=== PATIENT | female | born 1970 | race Caucasian/White ===

== ENCOUNTER 2021-03-02 06:32 | Emergency (ER) | payer OTHER, SELFPAY ==
--- NOTE | ~2021-03-02 | US_ITS ---
EXAMINATION: US VENOUS ULTRASOUND WITH DOPPLER LOWER EXTREMITY, RIGHT CLINICAL INFORMATION: Pain and swelling. COMPARISON: None TECHNIQUE: Ultrasound of the deep veins is performed from the hip to the calf with compression sonography and color and pulse Doppler assessment. Spectral analysis with color-flow imaging is performed. FINDINGS: There is normal venous compression and respiratory variation and augmented flow. The visualized common femoral vein, superficial femoral vein, profunda femoral vein, popliteal vein, and the trifurcation region shows no evidence of deep venous thrombosis. There is no significant popliteal fossa cyst. If the patient's symptoms persist, followup ultrasound in 5 days 7 days might be of value to exclude proximal propagation from a non-visualized calf vein. US/US venous duplex LE RT IMPRESSION: No DVT demonstrated in the right lower extremity.
[2021-03-02 06:46] VITALS: BP 181/131; PULSE 85; RESP 16; TEMP 36.6; O2SAT 97; BMI 23.0
--- NOTE | 2021-03-02 06:49 | ED.BACK ---
HPI - Back Pain/Injury General Chief Complaint: Back Pain/Injury Stated Complaint: back pain Time Seen by Provider: 03/02/21 06:49 Source: patient Mode of arrival: ambulatory Limitations: no limitations History of Present Illness MD elicited complaint: back pain and back injury Pertinent past history: prior back pain Onset (ago): day(s) (2) Timing: constant Severity: moderate Similar Symptoms Previously: Yes Quality: aching and throbbing Location: lumbar spine Radiation: right leg below the knee Exacerbating factors: movement Relieving factors: none Context: other (started after mowing the lawn) Associated symptoms: other (R leg cramp) Treatments prior to arrival: NSAIDS Work related injury: No Related Data Previous Rx's Medication Instructions Recorded diazepam 5 mg tablet (Valium) 5 mg PO TID PRN #10 tab 03/02/21 ibuprofen 600 mg tablet 600 mg PO Q6H PRN #30 tab 03/02/21 lidocaine 4 % topical patch 1 patch TOPICAL DAILY PRN #10 ea 03/02/21 prednisone 20 mg tablet 40 mg PO DAILY 4 Days #8 tab 03/02/21 Allergies Allergy/AdvReac Type Severity Reaction Status Date / Time No Known Allergies Allergy Unverified 04/16/20 15:27 [No Known Allergies*] Review of Systems Review of Systems: Constitutional : No Weight loss, No Fever, No Chills, ENT/Mouth : No Hearing loss, No Ear Pain, No Nasal Congestion, No Sinus Pain, No Hoarseness, No sore throat, No Rhinorrhea, No Swallowing Difficulty Cardiovascular : No Chest Pain, No SOB, pos calf pain Respiratory : No Cough, No Dyspnea Gastrointestinal : No Nausea, No Vomiting, No Diarrhea, No abdominal Pain, No Hematochezia, No Melena Genitourinary : No Dysuria, No Urinary Frequency, No Hematuria, No Urinary Incontinence, Musculoskeletal : positive back pain Skin : No Skin Lesions, No rash Neuro : No Weakness, No Numbness, No Paresthesias, no loss of bowel or bladder incontinence, no saddle anesthesia All other systems are negative PMF Past Medical History Attestation statement: The following information was validated with the patient. Medical History Hypertension Surgical History H/O: hysterectomy Social History Social History (Updated 03/02/21 @ 07:07 by Tenisha Kitchen DO) Patient Tobacco Use Status: Current everyday Tobacco user Advance Directives: No Patient : No Physical Exam Vital Signs: Vital Signs: Last Vital Signs Temp 97.8 F 03/02/21 07:15 Pulse 73 03/02/21 07:15 Resp 16 03/02/21 07:15 BP 133/99 H 03/02/21 07:15 Pulse Ox 95 03/02/21 07:15 Body Mass Index 23.0 Appearance: Alert. Oriented X3. No acute distress. Eyes: Pupils equal, round and reactive to light. ENT: Pharynx normal. Neck: Normal inspection. Neck supple. CVS: Normal heart rate and rhythm. Pulses normal. Respiratory: No respiratory distress. Breath sounds normal. Abdomen: Soft and nontender. Back: ttp along lateral lumbar paraspinals Skin: Skin warm and dry. Normal skin color. Normal skin turgor. Extremities: No lower extremity edema. R mild calf ttp Neuro: Oriented X 3. No motor deficit. No sensory deficit. L5/5 bilaterally SILT inner thighs 2+ patella reflexes Course Course Course Narrative: negative workup can ambulate stable for DC MDM - Back Pain/Injury MDM Narrative Medical decision making narrative: 51 yo female with low back pain no b/b incontinence, no saddle anesthesia, no IVDA, no AC therapy, no red flags at this time will need labs, R DVT study, PO pain control for back - no signs of CE Lab Data Result diagrams: 03/02/21 07:13 Labs: Lab Results 03/02/21 Range/Units 07:13 Potassium 3.7 (3.3-5.1) mmol/L Magnesium 1.8 (1.6-2.6) mg/dL Discharge Plan Discharge Clinical Impression: Lumbar radiculopathy, Myalgia Patient Disposition: Home, Self-Care Instructions: Acute Low Back Pain (ED), Musculoskeletal Pain (ED) Additional Instructions: return to ED for any worsening symptoms or concerns Prescriptions: New lidocaine 4 % adhesive patch,medicated 1 patch topical DAILY PRN (Reason: pain) Qty: 10 RF: 0 ibuprofen 600 mg tablet 600 mg PO Q6H PRN (Reason: pain) Qty: 30 RF: 0 diazepam [Valium] 5 mg tablet 5 mg PO TID PRN (Reason: muscle spasm) Qty: 10 RF: 0 prednisone 20 mg tablet 40 mg PO DAILY 4 Days Qty: 8 RF: 0 Referrals: Maggy Saez NP [Primary Care Provider] - 2 days (if not better) Stand Alone Forms: Work/School Release
[2021-03-02] MEDS: diazePAM 5 MG TABLET PO (07:10)
[2021-03-02] MEDS: predniSONE 20 MG TABLET 40 MG PO (07:10)
[2021-03-02 07:15] VITALS: BP 133/99; PULSE 73; RESP 16; TEMP 36.6; O2SAT 95
[2021-03-02 07:51] LABS: Magnesium 1.8 mg/dL (1.6-2.6); Potassium 3.7 mmol/L (3.3-5.1)
== END 2021-03-02 09:19 | disposition home or self-care (01) ==
PROVIDERS: Emergency Provider Emergency Medicine; PCP Nurse Practitioner Family
DX: M54.16 Radiculopathy, lumbar region (principal); M79.10 Myalgia, unspecified site; R60.0 Localized edema; F17.200 Nicotine dependence, unspecified, uncomplicated; Z71.6 Tobacco abuse counseling; Z79.899 Other long term (current) drug therapy
CPT/HCPCS: 36415; 83735; 84132; 93971; 99283

== ENCOUNTER 2023-08-08 09:49 | Emergency (ER) | payer OTHER, SELFPAY ==
[2023-08-08 09:59] VITALS: BP 211/112; PULSE 64; RESP 18; TEMP 36.6; O2SAT 98; BMI 23.5
[2023-08-08 14:12] VITALS: BP 197/106; PULSE 62; RESP 16; O2SAT 96
--- NOTE | 2023-08-08 14:15 | ED_ITS ---
HPI - General Adult General Chief complaint: General Medical Stated complaint: Issues w/Intestines Time Seen by Provider: 08/08/23 21:49 Source: patient Mode of arrival: ambulatory Limitations: no limitations History of Present Illness HPI narrative: Patient history of hypertension on atenolol and amlodipine noncompliant has not filled up her amlodipine for last 6 months comes here for rectal prolapse which has happened for last 3 days. Patient does have history of hysterectomy and bladder surgery been having loose bowels for last 3 days 3 to 4 times a day without any significant abdominal discomfort no nausea /vomiting noticed small rectal prolapse which she pushed inside at this time there is no prolapse patient's Xarelto for peripheral arterial disease noticed slight amount of blood in the stool earlier today Related Data Previous Rx's Medication Instructions Recorded diazepam 5 mg tablet (Valium) 5 mg PO TID PRN muscle spasm #10 03/02/21 tabs ibuprofen 600 mg tablet 600 mg PO Q6H PRN pain #30 tabs 03/02/21 lidocaine 4 % topical patch 1 patch topical DAILY PRN pain #10 03/02/21 ea prednisone 20 mg tablet 40 mg (2 x 20 mg) PO DAILY 4 days 03/02/21 #8 tabs losartan 50 mg tablet 50 mg PO DAILY #90 tabs 08/08/23 Allergies Allergy/AdvReac Type Severity Reaction Status Date / Time No Known Allergies Allergy Verified 08/08/23 09:58 [No Known Allergies*] Review of Systems 2 Review of Systems: Yes all other systems are reviewed and are negative PMFSH Past Medical History Onset Date is defined in the Problem List Problems that require an onset date and time if occurred within 24 hrs of arrival to the ED Aortic Dissection and Rupture; Neurologic impairment; Cardiopulmonary Arrest; Endotracheal Intubation; Insertion or Replacement of Mechanical Circulatory Assist Device Medical History Hypertension Surgical History H/O: hysterectomy Social History Social History Patient Tobacco Use Status: Current everyday Tobacco user Smoked in Last 30 Days: Yes Use of substances other than those prescribed or required for medical reasons: No Advance Directives: No Advance Directives Information Provided: No Physical Exam ED Vital Signs: Vital Signs - 24 hr 08/08/23 09:59 08/08/23 14:12 08/08/23 22:21 Temperature 98 F Pulse Rate 64 62 55 Respiratory Rate 18 16 15 Blood Pressure 211/112 H 197/106 H 160/80 H Pulse Oximetry 98 96 96 Oxygen Delivery Method Room Air Room Air Room Air BMI result Body Mass Index 23.5 Appearance: Alert. Oriented X3. No acute distress. Eyes: No pallor or icterus ENT: Pharynx normal. Oral Mucosa moist Neck: Normal inspection. Neck supple. CVS: Normal heart rate and rhythm. Pulses normal. Respiratory: No respiratory distress. Equal air entry bilateral, Abdomen: Soft and nontender. Bowel sounds are present, no mass palpable, rectal: No prolapse noticed at this time Skin: Skin warm and dry. Normal skin color. Normal skin turgor. Extremities: No lower extremity edema. No calf tenderness Neuro: Oriented X 3. Course Course Course Narrative: 2:16pm: RME: Patient re-evaluated at triage. Patient states had rectum coming out earlier and she put in back herself. Patient states feeling discomfort like it is about to happen again. Patient states blood in stool. Patient still hypertensive 197/106 without any neuro/stroke symptoms. Blood pressure systolic improved from 211/112 to 197/106. Will do labs check for renal function in kg make sure no hypertensive emergency. 3: 00pm: Charge nurse Kenna still looking for bed in the Ed for patient. Medications Administered Discontinued Medications Generic Name Dose Route Start Last Admin Trade Name Freq PRN Reason Stop Dose Admin Losartan Potassium 50 mg 08/08/23 22:11 08/08/23 22:29 Losartan Potassium 50 Mg Tablet PO 08/08/23 22:12 50 mg ONCE ONE Administration Protocol Medical Decision Making Medical Decision Making [facility] Narrative: Patient with rectal prolapse reducible at this time there is no rectal prolapse. Patient noted to have hypertension has not taken her medication today patient is on at atenolol and used to be on amlodipine which she has not taken for 7 months will give losartan instead of amlodipine. Repeat blood pressure 160/80 Differential Diagnosis Differential Diagnoses: The differential diagnosis associated with the presentation includes Rectal prolapse/uncontrolled hypertension Lab Data [facility] Lab Attestation statement: I reviewed the patient's lab results. 08/08/23 14:29 08/08/23 14:29 Labs: Lab Results 08/08/23 Range/Units 14:29 WBC 9.7 (4.8-10.8) X10*3/uL RBC 4.76 (4.20-5.50) X10*6/uL Hgb 13.8 (12.0-16.0) g/dl Hct 42.1 (37.0-47.0) % MCV 88.4 (80.0-98.0) fL MCH 29.0 (27.0-33.0) pg MCHC 32.8 (31.0-35.0) g/dl RDW 13.7 (11.0-16.0) % Plt Count 287 (160-400) X10*3/uL MPV 10.5 (9.4-12.3) fL Immature Gran % (Auto) 0.3 (0.0-0.4) % Neut % (Auto) 55.6 (45-73) % Lymph % (Auto) 35.2 (20-40) % [place] % (Auto) 6.3 (2-11) % Eos % (Auto) 1.9 (0-4) % Baso % (Auto) 0.7 (0-2) % Lymph # (Auto) 3.4 (1.2-4.9) X10*3/uL [place] # (Auto) 0.6 (0.1-1.2) X10*3/uL Eos # (Auto) 0.2 (0.0-0.4) X10*3/uL Baso # (Auto) 0.1 (0.0-0.2) X10*3/uL Abs Immat Gran (auto) 0.03 (0.00-0.03) X10*3/uL Absolute Neuts (auto) 5.4 (2.0-8.3) x10*3/uL Absolute Nucleated RBC 0.000 (0.0-0.012) X10*3/uL Nucleated RBC % (auto) 0.0 (0.0-0.2) /100WBC PT 11.4 (11.1-13.3) SEC INR 0.9 (0.9-1.1) APTT 36.1 (26.0-36.4) SEC Sodium 140 (135-145) mmol/L Potassium 3.7 (3.3-5.1) mmol/L Chloride 108 (96-108) mmol/L Carbon Dioxide 25 (22-29) mmol/L Anion Gap 11 L (12-20) BUN 12 (9-16) mg/dL Creatinine 0.80 (0.5-1.4) mg/dL Estim Creat Clear Calc 77.3 Estimated GFR > 60 Random Glucose 122 H (60-115) mg/dL Calcium 9.6 (8.4-10.2) mg/dL Total Bilirubin 0.4 (0.0-1.0) mg/dL AST 14 (5-31) U/L ALT 18 (0-31) U/L Alkaline Phosphatase 93 (39-117) U/L Troponin I High Sens < 2.7 (<3.5-17.0) ng/L Total Protein 7.4 (6.5-8.0) g/dL Albumin 4.5 (3.5-5.0) g/dL Discharge Plan Discharge Clinical Impression: Incomplete rectal prolapse Patient Disposition: Home, Self-Care Instructions: Rectal Prolapse (ED) Additional Instructions: Avoid straining when moving the bowels When rectal prolapse happens tried to push it back as soon as possible with wet towel Take your blood pressure medicine daily as advised Check blood pressure twice daily should be less than 140/90 Follow-up with surgeon Prescriptions: New losartan 50 mg tablet 50 mg PO DAILY Qty: 90 0RF No Action lidocaine 4 % adhesive patch,medicated 1 patch topical DAILY PRN (Reason: pain) Qty: 10 0RF Rx Instructions: may leave on for up to 12 hrs ibuprofen 600 mg tablet 600 mg PO Q6H PRN (Reason: pain) Qty: 30 0RF diazepam [Valium] 5 mg tablet 5 mg PO TID PRN (Reason: muscle spasm) Qty: 10 0RF prednisone 20 mg tablet 40 mg PO DAILY 4 Days Qty: 8 0RF Referrals: Nelson Browning MD [Physician] - 1 week Interventions: ED Discharge Assessment Last Done: 08/08/23 23:17 Discharge Date/Time: 08/08/23 23:20
--- NOTE | 2023-08-08 14:17 | ECG_ITS ---
Test Reason : HTN Blood Pressure : / mmHG Vent. Rate : 055 BPM Atrial Rate : 055 BPM P-R Int : 190 ms QRS Dur : 072 ms QT Int : 480 ms P-R-T Axes : 053 054 076 degrees QTc Int : 459 ms Sinus bradycardia Possible Left atrial enlargement Borderline ECG When compared with ECG of 11-APR-2017 22:46, OK interval has decreased Referred By: Jass Danielle Electronically Signed By:EDOUARD LEONARDO MD
[2023-08-08 14:34] LABS: MANUAL DIFF FLAG NO
[2023-08-08 14:35] LABS: Basophils Absolute Auto 0.1 X10*3/uL (0.0-0.2); Basophils Percent Auto 0.7 % (0-2); Eosinophils Absolute Auto 0.2 X10*3/uL (0.0-0.4); Eosinophils Percent Auto 1.9 % (0-4); Hematocrit 42.1 % (37.0-47.0); Hemoglobin 13.8 g/dl (12.0-16.0); Imm Gran Abs Auto 0.03 X10*3/uL (0.00-0.03); Imm Gran Pct Auto 0.3 % (0.0-0.4); Lymphocytes Absolute Auto 3.4 X10*3/uL (1.2-4.9); Lymphocytes Percent Auto 35.2 % (20-40); Mean Corpuscular HGB Conc 32.8 g/dl (31.0-35.0); Mean Corpuscular Volume 88.4 fL (80.0-98.0); Mean Platelet Volume 10.5 fL (9.4-12.3); Monocytes Absolute Auto 0.6 X10*3/uL (0.1-1.2); Monocytes Percent Auto 6.3 % (2-11); Neutrophils Absolute Auto 5.4 x10*3/uL (2.0-8.3); Neutrophils Percent Auto 55.6 % (45-73); Platelet Count 287 X10*3/uL (160-400); Red Blood Count 4.76 X10*6/uL (4.20-5.50); Red Cell Distribution Width 13.7 % (11.0-16.0); White Blood Count 9.7 X10*3/uL (4.8-10.8)
[2023-08-08 14:45] LABS: INTERNATIONAL NORM RATIO 0.9 (0.9-1.1); Prothrombin Time 11.4 SEC (11.1-13.3)
[2023-08-08 14:48] LABS: Partial Thromboplastin Time 36.1 SEC (26.0-36.4)
[2023-08-08 14:51] LABS: Alanine Aminotransferase 18 U/L (0-31); Albumin Level 4.5 g/dL (3.5-5.0); Alkaline Phosphatase 93 U/L (39-117); Anion Gap 11 (12-20); Aspartate Amino Transferase 14 U/L (5-31); Bilirubin Total 0.4 mg/dL (0.0-1.0); Blood Urea Nitrogen 12 mg/dL (9-16); Calcium 9.6 mg/dL (8.4-10.2); Carbon Dioxide 25 mmol/L (22-29); Chloride 108 mmol/L (96-108); Creatinine Clr Calc Pharmacy 77.3; Estimated Glomerular Filt Rate > 60; Glucose Random 122 mg/dL (60-115); Potassium 3.7 mmol/L (3.3-5.1); Sodium 140 mmol/L (135-145); Total Protein 7.4 g/dL (6.5-8.0)
[2023-08-08 15:06] LABS: Troponin-I High Sensitivity < 2.7 ng/L (<3.5-17.0)
[2023-08-08 22:21] VITALS: BP 160/80; PULSE 55; RESP 15; O2SAT 96
[2023-08-08] MEDS: Losartan Potassium 50 MG TABLET PO (22:29)
== END 2023-08-08 23:20 | disposition home or self-care (01) ==
PROVIDERS: Physician Assistant; Emergency Provider Internal Medicine; PCP Nurse Practitioner Family
DX: K62.3 Rectal prolapse (principal); R00.1 Bradycardia, unspecified; I10 Essential (primary) hypertension; Z79.899 Other long term (current) drug therapy
CPT/HCPCS: 36415; 80053; 84484; 85025; 85610; 85730; 93005; 99283; 99284

== ENCOUNTER → 2023-08-08 14:17 | Outpatient (BNV) | payer OTHER, SELFPAY | PROVIDERS: PCP Nurse Practitioner Family; Visit Provider Internal Medicine Cardiovascular Disease | DX: R00.1 Bradycardia, unspecified (principal) | CPT/HCPCS: 93010 ==

== ENCOUNTER 2023-08-09 12:59 | Outpatient (AMB) | payer OTHER, SELFPAY ==
[2023-08-09 13:00] VITALS: BP 146/82; PULSE 69; BMI 23.3
--- NOTE | 2023-08-09 13:00 | MHC.OFFVIS ---
Intake Vital Signs 08/09/23 13:00 Height 5 ft 7 in Weight 149 lb BMI 23.3 BP 146/82 H Blood Pressure Location Rt brachial Position Sitting Pulse 69 Intake Visit Reasons: Incomplete rectal prolapse Intake Note: This patient presents for a [facility] emergency department follow-up for incomplete rectal prolapse. Patient c/o; reports pressure sensation, reports rectal bleeding, reports was able to push it back in. Mainframe Consultant Required: No Accompanied by: Self / Same As Patient Allergies No Known Allergies [No Known Allergies*] Allergy (Verified 08/09/23 13:08) Medication List - Last Reconciled 08/09/23 by Nelson Browning MD diazepam (Valium) 5 mg PO TID PRN ibuprofen 600 mg PO Q6H PRN lidocaine 4% 1 patch topical DAILY PRN losartan 50 mg PO DAILY prednisone 40 mg (2 x 20 mg) PO DAILY 4 days psyllium seed (sugar) (Metamucil (sugar) oral powder) 1 tbsp PO BID HPI Incomplete rectal prolapse HPI Details 53-year-old female referred by the ER for rectal prolapse. She went to the ER 5 days ago because of she described as part of her rectum falling down her anus. She says she was able to reduce this herself. This was her 1st episode. She was discharged from the emergency room and referred to me. She denies any bleeding. She has had a long history of incontinence. She says she has been wearing a pad for about 3-4 years now because of incontinence of stool. She also says that she has had incontinence of urine for years as well although has improved a little bit after she had bladder suspension. She had vaginal 3 times in the distant past. She says her stools are often watery. She says she is up-to-date with her colonoscopy. She does have multiple other medical issues including diabetes, and a long smoking history. [facility] Medical History (Updated 08/09/23 @ 13:26 by Nelson Browning MD) Rectal prolapse Diabetes mellitus Smoking addiction Hypertension Surgical History H/O: hysterectomy Social History Patient Tobacco Use Status: Current everyday Tobacco user Review of Systems Const Denies chills and Denies fever(s) Card Denies chest pain, Denies dyspnea and Denies dyspnea on exertion Resp Reports cough (Chronic), Denies dyspnea and Denies dyspnea on exertion GI Details: Chronic watery stools, incontinence of stool Denies hematochezia and Denies change in bowel habits Denies hematuria Musc Denies back pain and Denies limited range of motion Neuro Denies focal weakness and Denies convulsions Psych Denies depression and Denies mood swings Physical Exam Vital Signs: Last Vital Signs Pulse 69 08/09/23 13:00 BP 146/82 H 08/09/23 13:00 BMI result Body Mass Index 23.3 Const General: comfortable and no acute distress Orientation/consciousness: patient oriented x3 Neck Neck: Yes no lymphadenopathy Resp Auscultation: clear to auscultation bilaterally Cardio Rhythm: regular rhythm GI Other: Rectal exam shows external hemorrhoids, poor sphincter tone on resting, able to do a have a little bit of squeeze pressure, no palpable masses or induration Palpation (GI): Soft to palpation, nontender and no guarding Neuro General: patient oriented x3 Office Procedures Anoscopy She was in jaskaran-knife position. The anoscope was gently inserted. A full examination of the anal canal was done. There were no lesions. She did have some external and internal hemorrhoids that were seen on anoscopy. There was no induration. There was no bleeding. There was no redness or any palpable mass. Again there was note of lax sphincter tone although she is able to able to do a little bit of squeeze [id number] Assessment & Plan Assessment & Plan (1) Rectal prolapse: Code(s): K62.3 - Rectal prolapse Plan: She she had an episode of rectal prolapse 5 days ago. This was a first-time. She took a picture which shows what appears to be a 2 cm rectal prolapse. She was able to reduce it herself She has very poor sphincter tone actually has had incontinence for about 4 years now. She describes her stools to be always watery. I will start her on some fiber supplementation with Metamucil. Hopefully, this will heal consistently of her stool and decrease incontinence as well as prolapse. I will see her again in the office in about 2-3 months. Medications: New psyllium seed (sugar) (Metamucil (sugar) oral powder) 1 tbsp PO BID 1,254 grams 2RF Coding Level of Care Code New Pt Level 3 (85315) Diagnoses Rectal prolapse K62.3 CPT Codes Details - CPT: 74445-[id number] ([id number])
== END 2023-08-09 13:24 | disposition home or self-care (01) ==
PROVIDERS: PCP Nurse Practitioner Family; Visit Provider Surgery
DX: K62.3 Rectal prolapse (principal)
CPT/HCPCS: 46600; 99203

== ENCOUNTER → 2023-08-09 12:59 | Outpatient (BNVA) | payer OTHER, SELFPAY | PROVIDERS: PCP Nurse Practitioner Family; Visit Provider Surgery | DX: K62.3 Rectal prolapse (principal) | CPT/HCPCS: 46600; 99202 ==